=== PATIENT | male | born 1935 | race Caucasian/White ===

== ENCOUNTER 2018-08-01 15:55 | Emergency (ER) | payer OTHER ==
--- NOTE | 2018-08-01 16:33 | EDPHY ---
H & P Time Seen by Provider: 08/01/18 16:07 HPI/ROS: CHIEF COMPLAINT: Right lateral abdominal pain HISTORY OF PRESENT ILLNESS: Patient is an 83-year-old male with a history of colon cancer presents emergency department right lateral abdomen pain. Patient states that last week he carried a piano bench inside. This rested against his hip inside. He felt as though it is slightly slipped under his ribs. The next day or two he had no discomfort. However yesterday he started to developed right lateral abdominal pain. His pain is intermittent. It is not worse with movement. He describes no lower abdominal discomfort. It was noted as right lower quadrant pain and the triage note but the patient denies this. He has had no nausea vomiting. No dysuria frequency. No fevers or chills. No chest pain or shortness of breath. REVIEW OF SYSTEMS: 10 systems were reveiwed and are negative with the exception of the elements mentioned in the hisotry of present illness. Past Medical/Surgical History: Includes colon cancer Smoking Status: Never smoked Physical Exam: Vitals noted GENERAL: Well-appearing, in no acute distress, alert. HEENT: Eyes normal to inspection, normal pharynx, no signs of dehydration. NECK: Normal, supple. RESPIRATORY: Clear to auscultation bilaterally, no rales, rhonchi or wheezing. CVS: Regular rate and rhythm, no rubs, murmurs, or gallops. ABDOMEN: Soft, nontender, nondistended, no organomegaly. Benign. Patient has 1 small lesion on his right lateral abdomen. He also has a 2nd lesion more medial which lies upon the same dermatome. BACK: Normal to inspection, no CVA tenderness. SKIN: Normal color, no rash, warm, dry. No pallor. EXTREMITIES: No pedal edema, no calf tenderness, no Homans sign or cords, no joint swelling. NEURO/PSYCH: Alert and oriented, normal mood and affect, normal motor sensory exam. Constitutional: Initial Vital Signs Temperature (C) 36.8 C 08/01/18 15:56 Heart Rate 82 08/01/18 15:56 Respiratory Rate 18 08/01/18 15:56 Blood Pressure 132/69 H 08/01/18 15:56 O2 Sat (%) 95 08/01/18 15:56 O2 Delivery Mode Room Air Allergies/Adverse Reactions: Sulfa (Sulfonamide Antibiotics) Allergy (Mild, Verified 08/01/18 16:05) edema both feet Home Medications: Medication Instructions Recorded Psyllium Husk [Metamucil] 660 gm PO 08/01/18 Valacyclovir HCl [Valtrex] 1,000 mg PO TID #21 tab 08/01/18 Medical Decision Making Procedures: Procedure: Trauma ultrasound. Limited echocardiogram for pericardial effusion. Limited bedside ultrasound was performed and interpreted by myself for the indication of: thoracoabdominal trauma utilizing the thoracoabdominal emergency ultrasound protocol. Limited transthoracic echocardiogram: The pericardium was visualized and found to be negative for pericardial fluid. The study was negative for pericardial effusion. Limited abdominal ultrasound for blunt abdominal trauma. 1) The right upper quadrant was visualized and was found to be negative for intraperitoneal fluid. 2) The left upper quadrant was visualized and found to be negative for intraperitoneal fluid. The study was felt to be negative for free intraperitoneal fluid. Limited pelvic ultrasound was conducted for abdominal trauma. The bladder was visualized and did not reveal an anechoic area outside of the adjacent urinary bladder. The study was felt to be negative for free intraperitoneal fluid. ED Course/Re-evaluation: In the emergency department I discussed possible etiologies with the patient. I answered all his questions. Because the patient had discomfort on his right abdomen and reports moving a piano bench I performed a fast exam at the bedside. This was negative. Patient was noted to have a few skin lesions. These could be consistent with zoster. I discussed this with the patient. Patient will be treated with acyclovir. He was given a prescription. The patient was given warnings prior to leaving. He will follow up with primary care physician this week. If his symptoms worsen he will return sooner to the emergency department. Differential Diagnosis: My differential includes but is not limited to zoster, muscle strain, malignancy , mass, hematoma, pneumothorax, hemothorax Departure - Departure Disposition: Home, Routine, Self-Care Clinical Impression: Abdominal pain Qualifiers: Abdominal location: upper abdomen, unspecified Qualified Code(s): R10.10 - Upper abdominal pain, unspecified Condition: Good Instructions: Acute Abdominal Pain (ED), Shingles (ED) Additional Instructions: Return with increasing pain, vomiting, fever or any other concerns. Take your entire course of medication prescribed. Referrals: Elke Haney MD [Primary Care Provider] - 3-4 days, if not improved Prescriptions: Valacyclovir HCl [Valtrex] 1,000 mg PO TID #21 tab
[2018-08-01] MEDS ORDERED: valACYclovir 500 MG TAB PO ONE (16:40)
[2018-08-01 16:56] VITALS: BP 145/85
== END 2018-08-01 16:52 | disposition home or self-care (01) ==
DX: R10.11 Right upper quadrant pain (principal)

== ENCOUNTER → 2018-09-20 | Outpatient (CLI) | payer OTHER ==
[~2018-09-20] MED LIST: IOPAMIDOL (ISOVUE-300) 150 ML BTL ONE
== END ==
LOC: FIMAGING 08:07
PROVIDERS: ATTEND Urology
DX: N28.89 Other specified disorders of kidney and ureter (principal); N32.3 Diverticulum of bladder; M85.88 Other specified disorders of bone density and structure, other site; K80.20 Calculus of gallbladder without cholecystitis without obstruction
CPT/HCPCS: 74178; Q9967

== ENCOUNTER → 2018-10-11 | Outpatient (CLI) | payer OTHER ==
[~2018-10-11] MED LIST changes: +IOPAMIDOL (ISOVUE-300) 100 ML BTL ONE; -IOPAMIDOL (ISOVUE-300) 150 ML BTL ONE
== END ==
LOC: FIMAGING 08:38
PROVIDERS: ATTEND Urology
DX: N28.89 Other specified disorders of kidney and ureter (principal); R91.1 Solitary pulmonary nodule
CPT/HCPCS: 71260; Q9967

== ENCOUNTER → 2018-10-14 | Outpatient (CLI) | payer OTHER | LOC: FIMAGING 08:33 | PROVIDERS: ATTEND Urology | DX: N28.89 Other specified disorders of kidney and ureter (principal); N40.2 Nodular prostate without lower urinary tract symptoms | CPT/HCPCS: 78306; A9503 ==

== ENCOUNTER 2018-12-30 08:29 | Observation (INO) | payer OTHER ==
[~2018-12-30 08:29] MED LIST changes: +DEXAMETHASONE 4 MG/ML VIAL ONE; -IOPAMIDOL (ISOVUE-300) 100 ML BTL ONE; +LIDOCAINE 2% 2 ML INJ ONE; +ONDANSETRON 4 MG/2 ML VIAL ONE; +PROPOFOL 200 MG/20 ML VIAL ONE; +fentaNYL 100 MCG/2 ML INJ ONE
[2018-12-30] MEDS ORDERED: LR 1,000 ML IV ONE (08:35)
[2018-12-30] MEDS ORDERED: OPIUM/BELLADONNA ALKALO SUPP PR PRN (08:35)
[2018-12-30] MEDS ORDERED: ceFAZolin 2 GM/DEXTROSE 100 ML IV ONE (08:35)
[2018-12-30] MEDS ORDERED: CEFAZOLIN 2 GM/DEXTROSE/100 ML BAG IV ONE (09:07)
--- NOTE | 2018-12-30 09:51 | PDANEPAE ---
ANE Past Medical History - Cardiovascular History Hx Hypertension: No Hx Arrhythmias: No Hx Chest Pain: No Hx Coronary Artery / Peripheral Vascular Disease: No Hx CHF / Valvular Disease: No Hx Palpitations: No - Pulmonary History Hx COPD: No Hx Asthma/Reactive Airway Disease: No Hx Recent Upper Respiratory Infection: No Hx Oxygen in Use at Home: No Hx Sleep Apnea: No Sleep Apnea Screening Result - Last Documented: Negative - Neurologic History Hx Cerebrovascular Accident: No Hx Seizures: No Hx Dementia: No - Endocrine History Hx Diabetes: No - Renal History Hx Renal Disorders: No Renal History Comment: possible cancer - Liver History Hx Hepatic Disorders: No - Cancer History Cancer History Comment: possible kidney cancer - Congenital Disorder History Hx Congenital Disorders: No - GI History Hx Gastrointestinal Disorders: Yes Gastrointestinal History Comment: severely constipated after 2002 surgery - Other Health History Other Health History: shingles 3-4 mnths ago. still in healing stage, itching on right side of torso and back - Chronic Pain History Chronic Pain: No - Surgical History Prior Surgeries: none in last 5 yrs. 2002 bowel resection removed @ 12 inches of ascending colon & 2-3 inches of small intestine & appendics ANE Review of Systems Review of Systems: - Exercise capacity METS (RN): 4 METS ANE Patient History - Allergies Allergies/Adverse Reactions: Sulfa (Sulfonamide Antibiotics) Allergy (Mild, Verified 12/16/18 12:05) edema both feet - Home Medications Home Medications: Psyllium Husk [Metamucil] 08/01/18 [Last Taken 12/29/18] Laxaclear 12/16/18 [Last Taken 12/23/18] Valacyclovir HCl [Valtrex] 12/16/18 [Last Taken 2 Months Ago ~10/29/18] Viagra 12/16/18 [Last Taken 12/12/18] - NPO status NPO Since - Liquids (Date): 12/29/18 NPO Since - Liquids (Time): 23:30 NPO Since - Solids (Date): 12/29/18 NPO Since - Solids (Time): 22:00 - Smoking Hx Smoking Status: Never smoked - Family Anes Hx Family Hx Anesthesia Complications: none ANE Labs/Vital Signs - Vital Signs Blood Pressure: 114/74 Heart Rate: 64 Respiratory Rate: 16 O2 Sat (%): 98 Height: 172.72 cm Weight: 61.235 kg ANE Physical Exam - Airway Neck exam: FROM Mallampati Score: Class 1 Mouth exam: normal dental/mouth exam - Pulmonary Pulmonary: no respiratory distress, no rales or rhonchi, clear to auscultation - Cardiovascular Cardiovascular: regular rate and rhythym, no murmur, rub, or gallop - ASA Status ASA Status: II ANE Anesthesia Plan Anesthesia Plan: GA w LMA
--- NOTE | 2018-12-30 10:03 | PDHPUP ---
History & Physical Update H&P update statement: This history and physical update is based on an assessment of the patient which was completed after admission or registration (within 24 hours), but prior to the surgery/procedure. H&P update: H&P reviewed & patient examined, no change in patient's condition since H&P completed
[2018-12-30] MEDS ORDERED: PROMETHAZINE HCL 25 MG/ML INJ IVP PRN (10:07)
[2018-12-30] MEDS ORDERED: METOCLOPRAMIDE 10 MG/2 ML VIAL IVP PRN (10:07)
[2018-12-30] MEDS ORDERED: HYDROmorphONE/DILAUDID 2 MG/ML INJ IVP PRN (10:07)
[2018-12-30] MEDS ORDERED: LR 500 ML IV PRN (10:07)
[2018-12-30] MEDS ORDERED: fentaNYL 100 MCG/2 ML INJ IVP PRN (10:07)
[2018-12-30] MEDS ORDERED: oxyCODONE IR 5 MG TAB PO PRN (10:07)
[2018-12-30] MEDS ORDERED: ONDANSETRON 4 MG/2 ML VIAL IVP PRN ×2 (10:07→12:47)
[2018-12-30] MEDS ORDERED: PHENYLEPHRINE HCL 100 MCG/ML SYR IVP PRN (10:07)
[2018-12-30] MEDS ORDERED: MEPERIDINE 25 MG/0.5 ML AMP IVP PRN (10:07)
[2018-12-30] MEDS ORDERED: NALOXONE HCL 0.4 MG/ML INJ IVP PRN (10:07)
--- NOTE | 2018-12-30 10:09 | POSTANESTH ---
Post Anesthetic Evaluation Cardiovascular Status: Normal, Stable Respiratory Status: Normal, Stable Level of Consciousness/Mental Status: Can Participate in Eval Pain Control: Adequate, Prn Tx Ordered Nausea/Vomiting Control: Adequate, Prn Tx Ordered Complications Possibly Related to Anesthesia: None Noted
[2018-12-30] MEDS ORDERED: ePHEDrine SULFATE 25 MG/5 ML SYR ONE (10:44)
[2018-12-30] MEDS ORDERED: LIDOCAINE 2% JELLY 20 ML (UROJECT) ONE (10:57)
[2018-12-30] MEDS ORDERED: OPIUM/BELLADONNA ALKALO SUPP PR ONE (10:57)
--- NOTE | 2018-12-30 12:06 | POSTOPPROG ---
Post Op Note Date of Operation: 12/30/18 Surgeon: Keisha Linton Anesthesiologist: Ham Anesthesia: GET(General Endotracheal) Pre-op Diagnosis: abnormal diverticular mucosa, hematuria, positive urine cytology Post-op Diagnosis: same, with abnormal papillary prostatic urethral tissue Indication: abnormal diverticular mucosa, hematuria, positive urine cytology Procedure: cysto,bx bladder diverticuum and random, bx prostatic urethra, miniturp Findings: abnl mucosa tic, papillary urethral tissue, prostatic regrowth Inf/Abcess present in the surg proc area at time of surgery?: No EBL: Minimal Complications: None, pt tolerated procedure well Drains: Other (so) Specimen(s): Bx tic, bx random bladder, bx prostatic urethra, prostate chips
[2018-12-30] MEDS ORDERED: HYDROCODONE/APAP 5/325 TAB PO PRN (12:47)
--- NOTE | 2018-12-30 12:50 | GOP ---
[f rep st] OPERATIVE REPORT DATE OF OPERATION: 12/30/2018 SURGEON: Keisha Linton MD ANESTHESIA: Dr. Cheek. PREOPERATIVE DIAGNOSIS: Gross hematuria, abnormal diverticula mucosa concerning for malignancy. Uri ne cytology positive for malignancy. POSTOPERATIVE DIAGNOSIS: Gross hematuria, abnormal diverticula mucosa concerning for malignancy. Ur ine cytology positive for malignancy along with abnormal prostatic urethral tissue that looked papill dulce. PROCEDURE PERFORMED: FINDINGS: Normal mucosa in the diverticulum. He only had 1 diverticulum in the bladder. Papillary urethral tissue that was also biopsied and prostatic regrowth leading to obstruction of the prostatic channel. SPECIMENS: Bladder biopsies, prostate chips and prostatic urethral biopsy. ESTIMATED BLOOD LOSS: Minimal. INDICATIONS: Hematuria that resulted in a cystoscopy showing abnormal mucosa in the diverticulum. Candace trevino underwent CT imaging, as well as an MRI for evaluation of the findings on the CT scan. He is here today for evaluation of his bladder. DESCRIPTION OF PROCEDURE: Patient was taken back to the cystoscopy suite, placed on the cystoscopy t able in the supine position. General anesthesia induced without complication. Time-out performed. Core measures satisfied, including placement of a Mary Hugger, SCDs and administration of 2 g Ancef a ntibiotics. He was brought to the end of the table, placed in a dorsal lithotomy position. All pres sure points padded. Genitalia draped and prepped in the standard surgical fashion with Betadine. A rigid cystoscope easily cannulated the urethral meatus and was advanced atraumatically into the bladd er. The prostatic urethra was obstructed with this regrowth of all of prostate tissue from the left lateral lobe going over to the right. There is also papillary frondular tissue in the prostatic uret hra. The veru was very flat, almost like it had been resected in the past with his past TURP. Once in the bladder, webster cystoscopy was performed and there were abnormalities in the single diverticulum which was quite moderate in size and the tissue looked like a low-grade papillary tissue. Then aroun d the rest of the bladder, I saw no abnormalities, so I advanced a flexible biopsy forceps through th e cystoscope and biopsied that diverticulum in 3 spots and these together. I then biopsied the frond ular-appearing tissue with the flexible biopsy forceps, in the prostatic urethra and sent these separ ate from the diverticulum. I then removed the cystoscope and then I assembled the TURIs resectoscope and cauterized the areas in the diverticulum that I had biopsied, as well as the prostatic urethra. I used the resectoscope then to remove this ball of prostate that had grown since his TURP and was o bstructing the channel. I did remove more papillary tissue from the prostatic urethra with the TURIs loop, but I did send those pieces separate from the prostate chips. I used cautery liberally to gai n hemostasis and then removed the TURIs resectoscope and then reassembled the cystoscope, advanced th e scope back in and did random bladder biopsies x4 around the bladder, and again, there was no gross abnormality seen with these biopsies. I did then reassemble the TURIs resectoscope, go back in with a visual obturator and cauterize the areas that I had biopsied. At this point, all specimens had bee n removed and hemostasis was good. The resectoscope was removed. A Yepez 18-Italian was placed witho ut difficulty. I manually irrigated a few times and the irrigant was very light pink to light red. was placed. Belladonna opium was placed and I also put lidocaine jelly in before placing the catheter, which I want to note. At this point, he was awoken from anesthesia and transferred to PACU in good condition. SURGEON: Keisha Linton M.D. PROCEDURE: Cystoscopy, cold cup biopsy of the bladder diverticular mucosa and random bladder biopsie s. Biopsy of the prostatic urethra and removal of regrowth of prostate tissue that was obstructing t he prostatic urethra. COMPLICATIONS: None. The patient tolerated the procedure well. DRAINS: A Yepez catheter. /[id number]/MODL
[2018-12-30] MEDS ORDERED: oxyCODONE IR 5 MG TAB ONE (13:07)
[2018-12-30] MEDS: D5W LR 1,000 ML IV SCH (14:32)
[2018-12-30] MEDS: SENNOSIDES/DOCUSATE SODIUM TAB PO SCH (21:00)
[2018-12-31] MEDS: D5W LR 1,000 ML IV SCH (03:30)
[2018-12-31] MEDS: SENNOSIDES/DOCUSATE SODIUM TAB PO SCH (09:07)
[2018-12-31] MEDS ORDERED: SILDENAFIL CITRATE 50 MG TAB PO PRN (11:28)
--- NOTE | 2018-12-31 11:31 | SOAPPROG ---
SOAP Progress Note Assessment/Plan: Assessment: s/p bladder bx, prostate bx, resection regrowth prostate tissue. Urine clear. 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 Will schedule removal form Thursday12/03/18. He has my cell for any questions over weekend. 12/31/18 11:29 Subjective: NAEON Urinary urgency but now resolved. Hematuria resolved. Objective: Vital Signs Temp Pulse Resp BP Pulse Ox 36.5 C 67 16 106/51 L 95 12/31/18 08:00 12/31/18 08:00 12/31/18 08:00 12/31/18 08:00 12/31/18 08:00 12/30/18 12/31/18 01/01/19 05:59 05:59 05:59 Intake Total 1500 750 Output Total 2110 400 Balance -610 350 Gen NAD A&O CV regular Abd soft Ext warm so manually irrigated well, all irrigant clear. No clots. - Pending Discharge Pending Discharge Within 24 Hours: Yes Pending Discharge Date: 01/01/19 Pending Discharge Time: 11:00 ICD10 Worksheet Patient Problems: Problems Problem Status Onset Lesion of bladder Acute - ICD10 Problem Qualifiers (1) Lesion of bladder
[2018-12-31 11:41] VITALS: BP 103/54
[2018-12-31] MEDS ORDERED: POLYETHYLENE GLYCOL PO SCH (14:00)
--- NOTE | 2018-12-31 15:31 | ASMTCMCOM ---
CM Note CM Note Notes: Pt had planned surgery for bladder tumor. Pt medically stable for d/c, no CM d/c needs identified. Date Signed: 12/31/2018 03:31 PM Electronically Signed By:PRANAY Mixon
--- NOTE | 2018-12-31 15:31 | ASMTLACE ---
NATHEN Length of stay for Answers: 2 days current admission Acuity / Level of Answers: No Care: Did the patient have an inpatient admission? # of Emergency department Answers: 1-2 visits in the last 6 months Score: 3 Date Signed: 12/31/2018 03:30 PM Electronically Signed By:PRANAY Mixon
[2018-12-31] MEDS ORDERED: PRESERVISION AREDS2 FORMULA EYE VIT 1 EACH PO SCH (21:00)
== END 2018-12-31 15:19 | disposition home or self-care (01) ==
LOC: FSGY 08:29 → F3N 12:47
PROVIDERS: ADMIT Urology; ATTEND Urology
DX: N32.89 Other specified disorders of bladder (principal); N32.3 Diverticulum of bladder; N28.89 Other specified disorders of kidney and ureter; R93.5 Abnormal findings on diagnostic imaging of other abdominal regions, including retroperitoneum; R31.0 Gross hematuria; Z88.2 Allergy status to sulfonamides
CPT/HCPCS: 52204; 52214; 52630; J0690; J1100; J2405; J2704; J3010

== ENCOUNTER 2019-02-14 11:04 | Day surgery (SDC) | payer OTHER ==
[2019-02-14] MEDS ORDERED: LR 1,000 ML IV ONE (11:25)
[2019-02-14] MEDS ORDERED: PROPOFOL/EMULSION 500 MG/50 ML BOTTLE IV ONE (12:21)
[2019-02-14] MEDS ORDERED: LIDOCAINE 2% 2 ML INJ ONE (12:23)
--- NOTE | 2019-02-14 12:31 | PDANEPAE ---
ANE History of Present Illness h/o colon ca for EUS/colonoscopy ANE Past Medical History - Cardiovascular History Hx Hypertension: No Hx Arrhythmias: No Hx Chest Pain: No Hx Coronary Artery / Peripheral Vascular Disease: No Hx CHF / Valvular Disease: No Hx Palpitations: No - Pulmonary History Hx COPD: No Hx Asthma/Reactive Airway Disease: No Hx Recent Upper Respiratory Infection: No Hx Oxygen in Use at Home: No Hx Sleep Apnea: No Sleep Apnea Screening Result - Last Documented: Negative - Neurologic History Hx Cerebrovascular Accident: No Hx Seizures: No Hx Dementia: No - Endocrine History Hx Diabetes: No - Renal History Hx Renal Disorders: No Renal History Comment: possible cancer - Liver History Hx Hepatic Disorders: No - Neurological & Psychiatric Hx Hx Neurological and Psychiatric Disorders: No - Cancer History Cancer History Comment: possible kidney cancer - Congenital Disorder History Hx Congenital Disorders: No - GI History Hx Gastrointestinal Disorders: Yes Gastrointestinal History Comment: severely constipated after 2002 surgery - Other Health History Other Health History: shingles 3-4 mnths ago. still in healing stage, itching on right side of torso and back - Chronic Pain History Chronic Pain: No - Surgical History Prior Surgeries: none in last 5 yrs. 2002 bowel resection removed @ 12 inches of ascending colon & 2-3 inches of small intestine & appendix. Hernia with mesh. TURP x2 ANE Review of Systems Review of Systems: - Exercise capacity METS (RN): 4 METS ANE Patient History - Allergies Allergies/Adverse Reactions: Sulfa (Sulfonamide Antibiotics) Allergy (Mild, Verified 12/16/18 12:05) edema both feet - Home Medications Home medications: home medication list seen and reviewed Home Medications: Polyethylene Glycol 3350 [Laxaclear] 1 each PO DAILY14 #0 12/16/18 [Last Taken 02/13/19] C/E/Zn/Cu/OM3/DHA/EPA/LUT/ZEAX [Preservision Areds 2 Softgel] 1 each PO BID [Last Taken 02/12/19] Psyllium Husk (with Sugar) [Metamucil Packet] 1 each PO DAILY14 12/30/18 [Last Taken 02/12/19] - NPO status NPO Since - Liquids (Date): 02/14/19 NPO Since - Liquids (Time): 04:00 NPO Since - Solids (Date): 02/13/19 NPO Since - Solids (Time): 08:00 - Anes Hx Anes Hx: no prior problems - Smoking Hx Smoking Status: Never smoked - Family Anes Hx Family Hx Anesthesia Complications: none ANE Labs/Vital Signs - Vital Signs Blood Pressure: 111/59 Heart Rate: 69 Respiratory Rate: 12 O2 Sat (%): 97 Height: 170.18 cm Weight: 63.503 kg ANE Physical Exam - Airway Neck exam: FROM Mallampati Score: Class 2 Mouth exam: normal dental/mouth exam - Pulmonary Pulmonary: no respiratory distress - Cardiovascular Cardiovascular: regular rate and rhythym - ASA Status ASA Status: II ANE Anesthesia Plan Anesthesia Plan: GA with mask
[2019-02-14] MEDS ORDERED: INDOMETHACIN 50 MG SUPP PR PRN (12:54)
--- NOTE | 2019-02-14 12:54 | PDGENHP ---
History & Physical Chief Complaint: subepithelial lesion/abnl imaging History of Present Illness: 83 year old male presents for evaluation of a sbuepithelial rectal lesion. Pertinent Past, Social, Family History: See anesthesiology notes. possible renal ca, colon resxn. Relevant Physical Exam: HEENT: anicteric. CV: RRR +s1s2. Lungs: CTAB No w/r/ r. Abd; Soft, nt, + bs Cardiorespiratory Assessment: ASA 2
[2019-02-14] MEDS ORDERED: NS 500 ML IV SCH (13:00)
[2019-02-14] MEDS ORDERED: NALOXONE HCL 0.4 MG/ML INJ IVP PRN (13:10)
[2019-02-14] MEDS ORDERED: LR 500 ML IV PRN (13:10)
[2019-02-14] MEDS ORDERED: ONDANSETRON 4 MG/2 ML VIAL IVP PRN (13:10)
[2019-02-14] MEDS ORDERED: fentaNYL 100 MCG/2 ML INJ IVP PRN (13:10)
[2019-02-14] MEDS ORDERED: ACETAMINOPHEN 500 MG TAB PO PRN (13:10)
[2019-02-14] MEDS ORDERED: ALBUTEROL 3 ML DEYVIAL IH PRN (13:10)
--- NOTE | 2019-02-14 13:11 | POSTANESTH ---
Post Anesthetic Evaluation Cardiovascular Status: Normal, Stable Respiratory Status: Normal, Stable Level of Consciousness/Mental Status: Can Participate in Eval, Alert and Oriented Pain Control: Adequate, Prn Tx Ordered Nausea/Vomiting Control: Adequate, Prn Tx Ordered Complications Possibly Related to Anesthesia: None Noted
[2019-02-14] MEDS ORDERED: levOFLOXACIN 500 MG/DEXTROSE/100 ML BAG IV ONE ×2 (13:30→13:35)
[2019-02-14 15:14] VITALS: BP 113/66
--- NOTE | 2019-02-14 17:40 | GPN ---
[f rep st] PROCEDURE NOTE DATE OF PROCEDURE: 02/14/2019 PROCEDURE: Flexible sigmoidoscopy, endoscopic ultrasound with fine-needle aspiration. INDICATIONS: The patient is an 83-year-old male who had a recent MRI of his pelvis for prostate cancer. He is found to have a cystic lesion close to the rectal sling which measured approximately 1.2 cm. He presents for further evaluation nad possible tissue acquisition. CONSENT: Risks, benefits, and alternatives of the procedure were discussed in great detail with the patient. Risk of infection, bleeding, perforation, and sedation were discussed. All questions answered and informed consent was obtained. MEDICATIONS: Propofol. Please see anesthesia record for details. Levaquin 500 mg IV x1. ESTIMATED BLOOD LOSS: Insignificant. FLEXIBLE SIGMOIDOSCOPY EVALUATION: A rectal exam was done and small hemorrhoids were felt. The scope was introduced rectum and advanced to the sigmoid where a few small diverticula were seen. No mass or luminal compression/ deformity noted on careful examination. The radial as well as linear echoendoscope were introduced into the rectum advanced to the sigmoid colon. The patient noted to have a large mass lesion close to his urinary bladder. It measured approximately 52.8 mm in cross- section. It was hypoechoic with well-defined margins. In the area of the rectal sling, a 1.2 cm cyst was seen. It was well-defined and had an internal septation. Doppler was used to rule out intervening vessels. A Plisten 25 gauge FNA needle was passed through the wall into the cystic lesion. Fluid was aspirated. Cytology was presented and preliminary report shows adequate cellularity with benign cells. The prostate was seen and had calcifications. IMPRESSION: 1. Cystic lesion status post FNA. 2. Mass lesion close to the urinary bladder, suspect malignancy. 3. Prostate cancer with nodularity and calcifications. RECOMMENDATION: 1. Follow up on FNA results. 2. Clear liquid diet and advance. 3. Continue present medications. /[id number]/MODL MTDD
== END 2019-02-14 15:30 | disposition home or self-care (01) ==
LOC: FSGY 11:04
PROVIDERS: ATTEND Internal Medicine Gastroenterology
PROC: 0D9N8ZX Drainage of Sigmoid Colon, Via Natural or Artificial Opening Endoscopic, Diagnostic (ICD-10-PCS; principal; 2019-02-14 12:30)
DX: K62.89 Other specified diseases of anus and rectum (principal); N39.8 Other specified disorders of urinary system; N40.2 Nodular prostate without lower urinary tract symptoms; Z85.038 Personal history of other malignant neoplasm of large intestine; Z90.49 Acquired absence of other specified parts of digestive tract; Z88.2 Allergy status to sulfonamides
CPT/HCPCS: J1956; J2704

== ENCOUNTER → 2019-04-13 | Outpatient (CLI) | payer OTHER ==
[~2019-04-13] MED LIST changes: -DEXAMETHASONE 4 MG/ML VIAL ONE; +GADOBUTROL 10 ML VIAL IVP ONE; -LIDOCAINE 2% 2 ML INJ ONE; -ONDANSETRON 4 MG/2 ML VIAL ONE; -PROPOFOL 200 MG/20 ML VIAL ONE; -fentaNYL 100 MCG/2 ML INJ ONE
== END ==
LOC: FIMAGING 09:47
PROVIDERS: ATTEND Urology
DX: N28.89 Other specified disorders of kidney and ureter (principal); M89.9 Disorder of bone, unspecified
CPT/HCPCS: 72158; 76770; A9585; 82565-PO